=== PATIENT | female | born 1990 | race African-American/Black ===

== ENCOUNTER 2016-09-12 10:56 | Emergency (ER) | payer OTHER ==
[2016-09-12] MEDS ORDERED: CEFTRIAXONE 1 GM VIAL ONE (12:49)
[2016-09-12] MEDS ORDERED: LIDOCAINE 1% MDV 20 ML ONE (12:49)
[2016-09-12] MEDS ORDERED: KETOROLAC 60 MG/2 ML VIAL IM ONE (12:50)
== END 2016-09-12 13:25 | disposition home or self-care (01) ==
LOC: ER 10:56
DX: J02.0 Streptococcal pharyngitis (principal); R50.9 Fever, unspecified
CPT/HCPCS: 87880; 96372